=== PATIENT | male | born 1990 | race Two or more races ===

== ENCOUNTER 2021-03-19 10:17 | Emergency (ER) | payer OTHER ==
[~2021-03-19] VITALS: Ht 167.6 cm; Wt 90.7 kg
[2021-03-19 11:00] VITALS: BP 139/86
== END 2021-03-19 11:53 | disposition home or self-care (01) ==
LOC: ER 10:17
DX: R05.9 Cough, unspecified (principal); M79.10 Myalgia, unspecified site; R50.9 Fever, unspecified; T50.B95A Adverse effect of other viral vaccines, initial encounter; Y92.89 Other specified places as the place of occurrence of the external cause